=== PATIENT | female | born 1970 | race Caucasian/White ===

== ENCOUNTER 2023-12-06 04:04 | Day surgery (SDC) | payer OTHER ==
[2023-12-02 10:37] VITALS: BMI 24.3
[2023-12-06] MEDS ORDERED: PROPOFOL 20 ML ONE (08:55)
[2023-12-06] MEDS ORDERED: DEXAMETHASONE SOD PHOSPHATE 4 MG/1 ML VIAL ONE (08:55)
[2023-12-06] MEDS ORDERED: MIDAZOLAM HCL 2 MG/2 ML SINGLE DOSE VIAL ONE (08:55)
[2023-12-06] MEDS ORDERED: ONDANSETRON 4 MG/2 ML VIAL ONE (08:55)
[2023-12-06] MEDS ORDERED: LIDOCAINE HCL/PF 2% SDV 5ML VIAL ONE (08:55)
[2023-12-06] MEDS ORDERED: oxyCODONE HCL 5 MG TABLET PO PRN (09:06)
[2023-12-06] MEDS ORDERED: ONDANSETRON 4 MG/2 ML VIAL IVPUSH PRN (09:06)
[2023-12-06] MEDS ORDERED: ACETAMINOPHEN INJECTION 100 ML ONE (10:01)
[2023-12-06] MEDS: LACTATED RINGERS SOLUTION 1,000 ML IV SCH (10:03)
[2023-12-06] MEDS: ACETAMINOPHEN 1000 MG/100 ML BAG IVPB ONE (10:03)
[2023-12-06 12:36] VITALS: RESP 16
[2023-12-06 13:04] VITALS: BP 109/67; PULSE 58; TEMP 97.7
== END 2023-12-06 13:00 | disposition home or self-care (01) ==
LOC: JASU-SURG 04:04
PROVIDERS: ATTEND Obstetrics & Gynecology
PROC: 0UB98ZZ Excision of Uterus, Via Natural or Artificial Opening Endoscopic (ICD-10-PCS; 2023-12-06)
PROC: 0UBC8ZZ Excision of Cervix, Via Natural or Artificial Opening Endoscopic (ICD-10-PCS; principal; 2023-12-06 08:30)
DX: N84.0 Polyp of corpus uteri (principal); N85.00 Endometrial hyperplasia, unspecified
CPT/HCPCS: 88305-TC; 94760; J0131